=== PATIENT | female | born 1950 | race Caucasian/White ===

== ENCOUNTER 2017-07-29 22:29 | Emergency (ER) | payer OTHER ==
[~2017-07-29 22:29] MED LIST: APAP/CODEINE TAB 300 PO; HYDROXYZINE50 MG PO; LEVOTHYROXIN0.112 M1 PO; PHENOBARBITAL64.8 MG PO
[2017-07-29 22:36] VITALS: BP 145/82
--- NOTE | 2017-07-30 00:54 | ED GENERAL ADULT ---
History of Present Illness General Chief Complaint: General Adult Stated Complaint: "CHILLS,FEVER @HOME TEMP 101, +N+V-D" Source: patient, family Exam Limitations: no limitations Vital Signs & Intake/Output Vital Signs & Intake/Output Vital Signs Date Time Temp Pulse Resp B/P B/P Pulse O2 O2 Flow FiO2 Mean Ox Delivery Rate 07/30 0120 99.0 07/29 2236 99.0 83 20 145/82 97 ED Intake and Output 07/30 0000 07/29 1200 Intake Total Output Total Balance Patient 190 lb Weight Allergies Coded Allergies: ampicillin (Intermediate, HIVES 07/30/17) cefaclor (Intermediate, HIVES 07/30/17) carbamazepine (Mild, RASH 07/30/17) phenytoin (Mild, HIVES 07/30/17) sulfamethoxazole (From BACTRIM) (Severe, SEVERE VOMITING 07/30/17) trimethoprim (From BACTRIM) (Severe, SEVERE VOMITING 07/30/17) Reconcile Medications Levothyroxine Sodium 0.112 MG TAB 1 TAB PO DAILY THYROID HEALTH (Reported) Ondansetron (Zofran Odt) 4 MG TAB.RAPDIS 1 TAB PO Q6 PRN NAUSEA Phenobarbital 64.8 MG TAB 1 TAB PO DAILY SEIZURES (Reported) Triage Note: PER PT SUDDEN ONSET OF FEVER, CHILLS VOMITTED X 2 NO DIARRHEA SINCE AFTERNOON. NO TYLENOL MOTRIN ETC TEMP IN TRIAGE 99.0 Triage Nurses Notes Reviewed? yes Onset: Abrupt Duration: day(s): (1) Injury Environment: home Severity: mild, moderate No Modifying Factors: none Associated Symptoms: cough, VOMITING, DIARRHEA HPI: This is a 66-year-old female with history of renal phenomenon, hypothyroidism who presents to the ER with chief complaint of fever of 100.8 at home, cough, vomiting and nausea. She also reported some mild headache. No recent sick contacts or travel. No significant immunocompromise. She is up-to-date with her flu vaccine. Patient reports some chest pain with coughing. Patient also with history of seizure disorder on Keppra and phenobarbital. Levels are checked by her primary care doctor and monitored. Past History Travel History Traveled to [place] past 21 day No Medical History Any Pertinent Medical History? see below for history Neurological: SEIZURE DISORDER B/C OF THYLAS [place]GASD RAYNAIRDS EENT: NONE Cardiovascular: NONE Respiratory: NONE Gastrointestinal: NONE Hepatic: NONE Renal: NONE Musculoskeletal: NONE Psychiatric: NONE Endocrine: THYROID Blood Disorders: NONE Cancer(s): NONE Surgical History Surgical History: non-contributory Psychosocial History What is your primary language British Tobacco Use: Never used Family History Hx Contributory? No Review of Systems Review of Systems Constitutional: Reports: fever, malaise. EENTM: Reports: no symptoms. Respiratory: Reports: cough. Cardiovascular: Reports: no symptoms. GI: Reports: diarrhea, vomiting. Genitourinary: Denies: discharge, dysuria, frequency. Musculoskeletal: Denies: back pain. Skin: Reports: no symptoms. Neurological/Psychological: Reports: no symptoms. Hematologic/Endocrine: Denies: bruising, bleeding, polyuria, polydipsia. Immunologic/Allergic: Reports: no symptoms. All Other Systems: Reviewed and Negative Physical Exam Physical Exam General Appearance: well developed/nourished, alert, awake, mild distress Head: atraumatic, normal appearance Eyes: Bilateral: normal appearance, PERRL, EOMI. Ears, Nose, Throat: normal pharynx, normal ENT inspection, hearing grossly normal Neck: normal inspection, supple, full range of motion Respiratory: normal breath sounds, chest non-tender, no respiratory distress Cardiovascular: regular rate/rhythm, normal peripheral pulses Gastrointestinal: normal bowel sounds, soft, non-tender Extremities: normal inspection, no edema Neurologic/Psych: no motor/sensory deficits, awake, alert, oriented x 3, normal gait Skin: intact, normal color, warm/dry Core Measures ACS in differential dx? No CVA/TIA Diagnosis: No Sepsis Present: No Sepsis Focused Exam Completed? No Progress Differential Diagnoses I considered the following diagnoses in my evaluation of the patient: [, Pharyngitis, strep, pneumonia, bronchitis, viral syndrome, gastroenteritis] Plan of Care: Orders Procedure Date/time Status THROAT CULTURE W/QUICK STREP 07/30 0108 Active RAPID VIRAL INFLUENZA A 07/29 2234 Complete Current Medications Sig/Marilyn Start time Last Medication Dose Stop Time Status Admin Ibuprofen 600 MG ONCE ONE 07/30 0115 UNVr 07/30 (Motrin) 07/30 0116 0120 Microbiology 07/29 2240 NASOPHARYN: Influenza Virus A & B Rapid Smear - COMP Rapid flu is negative. Quick strep, IV Zofran ordered. No nausea at this time. Initial ED EKG: none Departure Departure Disposition: HOME OR SELF CARE Condition: Stable Clinical Impression Primary Impression: Viral syndrome Referrals: Paolo FUENTES,Bhumi Rodriguez (PCP/Family) Additional Instructions: Take ibuprofen or Tylenol as stated for fever or pain. Take Zofran as needed for nausea. Departure Forms: Customer Survey General Discharge Information Prescriptions: Current Visit Scripts Ondansetron (Zofran Odt) 1 TAB PO Q6 PRN NAUSEA #20 TAB Critical Care Note Critical Care Note Critical Care Time: non-applicable
[2017-07-30] MEDS ORDERED: ZOFRAN ODT4 M1 PO (01:21)
== END 2017-07-30 01:50 ==
LOC: ERH 22:29
DX: B34.9 Viral infection, unspecified (principal); R11.2 Nausea with vomiting, unspecified
CPT/HCPCS: 87804; 87804-59